=== PATIENT | male | born 1990 | race Caucasian/White ===

== ENCOUNTER 2025-03-21 21:21 | Inpatient (IN) | payer SELFPAY ==
[~2025-03-21 21:21] MED LIST: Iopamidol-370 76% 500 ML MDV (1 ML CHARGE) ONE
[2025-03-21] MEDS ORDERED: Propofol 1,000 MG/100 ML VIAL IV ONE (21:25)
[2025-03-21] MEDS ORDERED: fentaNYL Citrate-0.9 % NaCl/PF 100 ML ONE (21:26)
[2025-03-21 21:34] LABS: Actual Bicarbonate (HCO3a) 22.8 mEq/L (22-28); Analyzer IN Cardio ER; Base Excess (BEa) -3.8 mEq/L (-2.0 to +3.0); CO2 Tension 46.4 mmHg (35.0-45.0); Calcium, Ionized (arterial) 1.12 mmol/L (1.12-1.30); Carboxyhemoglobin (COHb) 0.3 gm% (0.0-3.0); Hematocrit-ABG 51 % (42.0-52.0); Hemoglobin (Hb) 17.4 g/dL (14.0-18.0); O2 Tension (PaO2), arterial 554.1 mmHg (80.0-100.0); Potassium - ABG Lab 3.97 mmol/L (3.70-5.30); pH, Arterial 7.309 (7.35-7.45)
[2025-03-21 21:40] LABS: Puncture Site Left Radial artery
[2025-03-21 21:59] LABS: #Basophils 0.08 10x3/uL (0.0-0.2); #Eosinophils 0.19 10x3/uL (0.0-0.7); #Monocytes 1.02 10x3/uL (0.11-0.59); #Neutrophils 9.75 10x3/uL (1.40-6.50); %Basophils 0.6 % (0.0-1.0); %Eosinophils 1.4 % (0.0-10.0); %Lymphocytes 17.1 % (21.0-51.0); %Monocytes 7.5 % (0.0-10.0); %Neutrophils 72.1 % (42.0-75.0); Hemoglobin 16.1 g/dL (14.0-18.0); Mean Corpuscular HGB CONC 35.8 g/dL (32.0-36.0); Mean Corpuscular Hemoglobin 33.5 pg (27.0-31.0); Mean Corpuscular Volume 93.6 fL (78.0-98.0); Platelet Count 284 10x3/uL (130-400); RBC Distribution Width 12.2 % (11.5-14.5); Red Blood Cell (RBC) Count 4.81 mill/uL (4.70-6.10); White Blood Cell (WBC) Count 13.53 10x3/uL (4.8-10.8)
[2025-03-21 22:15] LABS: Bacteria/HPF None Seen HPF (None Seen); Bilirubin Negative (Negative); Blood, Urine Negative (Negative); CAUTI Indications for Culture Urological Procedure; Clarity Clear (Clear); Glucose, Urine (Dipstick) Normal (Negative); Ketone, Urine Negative (Negative); Leukocyte Negative Leu/uL (Negative); Nitrite Negative (Negative); Protein, Urine (Dipstick) Negative (Neg-Trace); RBC/HPF 0-3 HPF (0-3); Specific Gravity, Urine 1.011 (1.002-1.036); Squamous Epithelial 0-3 HPF (0-3); Urobilinogen Normal mg/dL (Less than 2); WBC/HPF 0-3 HPF (0-3); pH, Urine 6.5 (5.0-9.0)
[2025-03-21 22:24] LABS: Amphetamine Negative (Negative); Barbiturates Screen Negative (Negative); Benzodiazepine Screen PRELIM POSITIVE (Negative); Cocaine Metabolite Screen Negative (Negative); Methadone Negative (Negative); Methamphetamine Negative (Negative); Opiate Screen Negative (Negative); Oxycodone Screen Negative (Negative); Phencyclidine (PCP) Negative (Negative); THC/Cannabinoid Screen PRELIM POSITIVE (Negative); Tricyclic Screen PRELIM POSITIVE (Negative)
[2025-03-21 22:25] LABS: Urine Culture Reflex Yes Yes
[2025-03-21 22:35] LABS: ALT (SGPT) 53 U/L (Less than 45); AST (SGOT) 51 U/L (11-34); Albumin 4.4 g/dL (3.1-4.5); Alkaline Phosphatase 85 U/L (40-110); Anion Gap 16 mmol/L (10-20); BUN (Urea Nitrogen) 9 mg/dL (8.9-20.6); Bilirubin, Total 0.8 mg/dL (0.3-1.2); Calc. Creatinine Clearance 0 mL/min (70-130); Calcium 8.7 mg/dL (7.8-10.44); Carbon Dioxide 23 mmol/L (22-29); Chloride 101 mmol/L (98-107); Estimated GFR 121; Globulin 3.3 g/dL (2.4-3.5); Glucose 78 mg/dL (70-105); Lipase 27 U/L (8-78); Protein, Total 7.7 g/dL (6.0-8.3); Sodium 136 mmol/L (136-145)
[2025-03-21 22:36] LABS: Acetaminophen Less than 10 mcg/mL (Less than 10); Alcohol 52.7 mg/dL (Less than 10); Salicylate Less than 8.0 mg/dL (Less than 8.0)
[2025-03-21] MEDS ORDERED: Fentanyl BOLUS 100 ML IVPB PRN (23:45)
[2025-03-21] MEDS ORDERED: Electrolyte Replacement Protocol FS PRN (23:45)
[2025-03-21] MEDS ORDERED: Morphine 4 MG/ML VIAL SLOW IVP PRN (23:45)
[2025-03-21] MEDS ORDERED: DISCONTINUE PREVIOUS NARCOTIC PAIN MEDICATIONS AND BENZODIAZEPINES FS SCH (23:45)
[2025-03-21] MEDS ORDERED: Ventilator Sedation Protocol 1 EACH FS SCH (23:45)
[2025-03-21] MEDS ORDERED: Propofol BOLUS 1,000 MG/100 ML VIAL IV PRN (23:45)
[2025-03-21] MEDS ORDERED: Acetaminophen 325 MG TAB PO PRN (23:49)
[2025-03-21] MEDS ORDERED: Ondansetron PF 4 MG/2 ML Vial IVP PRN (23:49)
[2025-03-21 23:59] LABS: Actual Bicarbonate (HCO3a) 22.2 mEq/L (22-28); Base Excess (BEa) -2.4 mEq/L (-2.0 to +3.0); CO2 Tension 38.2 mmHg (35.0-45.0); Carboxyhemoglobin (COHb) 0.3 gm% (0.0-3.0); Hematocrit-ABG 49 % (42.0-52.0); Hemoglobin (Hb) 16.5 g/dL (14.0-18.0); O2 Tension (PaO2), arterial 379.9 mmHg (80.0-100.0); pH, Arterial 7.383 (7.35-7.45)
[2025-03-21] MEDS ORDERED: Midazolam HCl 2 mg/2 ml Vial SLOW IVP PRN (23:59)
[2025-03-22] LABS: Analyzer IN Cardio ER; Calcium, Ionized (arterial) 1.07 mmol/L (1.12-1.30); Potassium - ABG Lab 4.18 mmol/L (3.70-5.30); Puncture Site Left Radial artery
[2025-03-22] MEDS ORDERED: Multivit, Adult Inj 10 ML VIAL IV SCH (00:15)
[2025-03-22 00:26] VITALS: BMI 24.6
[2025-03-22] MEDS: Thiamine HCl 200 MG/2 ML VIAL SLOW IVP SCH (01:21)
[2025-03-22] MEDS: Propofol 1,000 MG/100 ML VIAL IV PRN (01:22)
[2025-03-22] MEDS: Multivitamins, Adult 10 ML in Sodium Chloride 0.9% 500 ML IV SCH (01:22)
[2025-03-22] MEDS: Sodium Chloride 0.9% 1,000 ML IV SCH (01:22)
[2025-03-22 01:33] LABS: Lactic Acid 2.41 mmol/L (0.50-2.20)
[2025-03-22] MEDS: fentaNYL Citrate-0.9 % NaCl/PF 100 ML IV SCH (02:08)
[2025-03-22 03:04] LABS: #Basophils 0.05 10x3/uL (0.0-0.2); #Eosinophils 0.19 10x3/uL (0.0-0.7); #Monocytes 1.16 10x3/uL (0.11-0.59); #Neutrophils 7.48 10x3/uL (1.40-6.50); %Basophils 0.4 % (0.0-1.0); %Eosinophils 1.6 % (0.0-10.0); %Lymphocytes 25.3 % (21.0-51.0); %Monocytes 9.6 % (0.0-10.0); %Neutrophils 62.2 % (42.0-75.0); Hematocrit 42.1 % (42.0-52.0); Hemoglobin 14.8 g/dL (14.0-18.0); Mean Corpuscular HGB CONC 35.2 g/dL (32.0-36.0); Mean Corpuscular Hemoglobin 33.2 pg (27.0-31.0); Mean Corpuscular Volume 94.4 fL (78.0-98.0); Mean Platelet Volume 8.9 fL (7.4-10.4); Platelet Count 271 10x3/uL (130-400); RBC Distribution Width 12.5 % (11.5-14.5); Red Blood Cell (RBC) Count 4.46 mill/uL (4.70-6.10); White Blood Cell (WBC) Count 12.04 10x3/uL (4.8-10.8)
[2025-03-22 03:17] LABS: ALT (SGPT) 41 U/L (Less than 45); AST (SGOT) 41 U/L (11-34); Albumin 3.8 g/dL (3.1-4.5); Alkaline Phosphatase 74 U/L (40-110); Anion Gap 14 mmol/L (10-20); BUN (Urea Nitrogen) 10 mg/dL (8.9-20.6); Bilirubin, Total 0.5 mg/dL (0.3-1.2); Calc. Creatinine Clearance 157 mL/min (70-130); Carbon Dioxide 24 mmol/L (22-29); Chloride 102 mmol/L (98-107); Estimated GFR 121; Globulin 2.8 g/dL (2.4-3.5); Glucose 79 mg/dL (70-105); Magnesium 1.7 mg/dL (1.6-2.6); Potassium 3.7 mmol/L (3.5-5.1); Protein, Total 6.6 g/dL (6.0-8.3); Sodium 136 mmol/L (136-145)
[2025-03-22 03:42] LABS: Phosphorus 4.2 mg/dL (2.5-4.5)
[2025-03-22 03:43] LABS: Lactic Acid 2.13 mmol/L (0.50-2.20)
[2025-03-22 03:44] LABS: CK (CPK) 114 U/L (30-200)
[2025-03-22 04:39] LABS: Magnesium 1.7 mg/dL (1.6-2.6)
[2025-03-22] MEDS ORDERED: DC Sedation Protocol FS SCH (07:14)
[2025-03-22] MEDS: Magnesium 2 GM/50 ML(in water) 2 GM in Premix 1 BAG IVPB SCH (09:06)
[2025-03-22] MEDS: Enoxaparin 40 MG (0.4 mL) SYRINGE SC SCH (09:06)
[2025-03-22] MEDS: chlordiazePOXIDE HCl 25 MG CAP PO SCH (09:06)
[2025-03-22] MEDS: Folic Acid 1 MG TAB PO SCH (09:07)
[2025-03-22] MEDS: Famotidine/PF 20 mg/2ml Vial SLOW IVP SCH (09:07)
[2025-03-22] MEDS: hydrALAZINE 20 MG/ML VIAL SLOW IVP PRN (10:23)
[2025-03-22 15:51] VITALS: BP 150/95; TEMP 97.5
[2025-03-24] MEDS ORDERED: Multivitamin W/ Minerals 1 TAB PO SCH (09:00)
[2025-03-25] MEDS ORDERED: Thiamine 100 MG TAB PO SCH (09:00)
== END 2025-03-22 22:17 | disposition left against medical advice (07) | DRG 894 ==
LOC: ERS 21:21 → CCU 23:17 → T4-B 03-22 15:48
PROVIDERS: ADMIT Internal Medicine; ATTEND Internal Medicine
PROC: XX20X89 Monitoring of Brain Electrical Activity, Computer-aided Detection and Notification, New Technology Group 9 (ICD-10-PCS; principal; 2025-03-22)
PROC: HZ2ZZZZ Detoxification Services for Substance Abuse Treatment (ICD-10-PCS; 2025-03-22)
PROC: 5A1935Z Respiratory Ventilation, Less than 24 Consecutive Hours (ICD-10-PCS; 2025-03-22)
DX: F10.229 Alcohol dependence with intoxication, unspecified (principal); J96.02 Acute respiratory failure with hypercapnia; G93.41 Metabolic encephalopathy; E87.29 Other acidosis; F31.9 Bipolar disorder, unspecified; F41.9 Anxiety disorder, unspecified; D72.829 Elevated white blood cell count, unspecified; Y90.2 Blood alcohol level of 40-59 mg/100 ml; Z53.29 Procedure and treatment not carried out because of patient's decision for other reasons; F12.90 Cannabis use, unspecified, uncomplicated; Z60.2 Problems related to living alone; Z90.49 Acquired absence of other specified parts of digestive tract; Z98.890 Other specified postprocedural states
CPT/HCPCS: 36415; 36600; 70450; 71045; 71260; 72125; 74018; 74177; 80053; 80306; 80307; 81001; 82550; 82805; 83605; 83690; 83735; 84100; 85025; 86850; 86900; 86901; 87086; 93005; 94002; 94003; 96360; J0360; J1650; J2704; J3411; J3475; J3490; J7030; Q9967